=== PATIENT | male | born 1965 | race Caucasian/White ===

== ENCOUNTER 2019-08-15 07:47 | Emergency (ER) | payer BC ==
[2019-08-15] MEDS ORDERED: Sodium Chloride 0.9% 10 ML Syringe FLUSH PRN (07:56)
[2019-08-15 08:29] LABS: CHLORIDE,CL 106 mmol/L (98-107); SODIUM,NA 140 mmol/L (136-145)
--- NOTE | 2019-08-15 08:58 | EDM.PDOC ---
ED HPI GENERAL MEDICAL PROBLEM - General Chief Complaint: General Stated Complaint: left arm tingling and numbness Time Seen by Provider: 08/15/19 08:00 Source of Information: Reports: Patient History Limitations: Reports: No Limitations - History of Present Illness INITIAL COMMENTS - FREE TEXT/NARRATIVE: Pt with numbness and tingling in left arm Intermittent Starts in hand and extends up Has hx/o crush injury to hand many years ago Pain extends up arm Does not go to chest Father of heart disease Onset: Gradual Duration: Day(s):, Intermittent Location: Reports: Upper Extremity, Left Quality: Reports: Throbbing Severity: Moderate - Related Data Allergies Allergy/AdvReac Type Severity Reaction Status Date / Time No Known Allergies Allergy Verified 08/15/19 07:48 Home Meds: Home Meds . [No Known Home Meds] 08/15/19 [History] Past Medical History HEENT History: Reports: Impaired Vision Gastrointestinal History: Reports: Colon Polyp, Diverticulosis Musculoskeletal History: Reports: Arthritis, Fracture Other Musculoskeletal History: broken right leg, broken left hand Psychiatric History: Reports: Anxiety, Depression Hematologic History: Reports: Blood Transfusion(s) - Past Surgical History HEENT Surgical History: Reports: Oral Surgery GI Surgical History: Reports: Colonoscopy Social & Family History - Tobacco Use Smoking Status *Q: Current Every Day Smoker Years of Tobacco use: 25 Packs/Tins Daily: 1 - Caffeine Use Caffeine Use: Reports: Soda Other Caffeine Use: occasionally - Alcohol Use Days Per Week of Alcohol Use: 1 Number of Drinks Per Day: 1 Total Drinks Per Week: 1 - Recreational Drug Use Recreational Drug Use: No ED ROS GENERAL - Review of Systems Review Of Systems: See Below Constitutional: Reports: No Symptoms Respiratory: Reports: No Symptoms Cardiovascular: Reports: No Symptoms GI/Abdominal: Reports: No Symptoms Skin: Reports: No Symptoms Neurological: Reports: Numbness, Paresthesia, Tingling ED EXAM, GENERAL - Physical Exam Exam: See Below Exam Limited By: No Limitations General Appearance: Alert, WD/WN, No Apparent Distress Neck: Supple Respiratory/Chest: Lungs Clear Cardiovascular: Regular Rate, Rhythm GI/Abdominal: Non-Tender Extremities: Other (Old injury to left hand No neuro deficeits) Course - Vital Signs Last Recorded V/S: Last Vital Signs Temp 99 F 08/15/19 08:21 Pulse 75 03/26/20 08:45 Resp 16 08/15/19 08:45 BP 167/106 H 08/15/19 08:45 Pulse Ox 92 L 08/15/19 08:45 - Orders/Labs/Meds Orders: Active Orders 24 hr Category Date Time Status EKG Documentation Completion [RC] ASDIRECTED Care 08/15/19 07:56 Active Chest 2V [CR] Stat Exams 08/15/19 07:56 Taken Sodium Chloride 0.9% [Saline Flush] Med 08/15/19 07:56 Active 10 ml FLUSH ASDIRECTED PRN Saline Lock Insert [OM.PC] Routine Oth 08/15/19 07:56 Ordered EKG 12 Lead [EK] Routine Ther 08/15/19 07:56 Ordered Medication Orders Sodium Chloride (Saline Flush) 10 ml FLUSH ASDIRECTED PRN PRN Reason: Keep Vein Open Labs: Laboratory Tests 08/15/19 08/15/19 Range/Units 08:00 08:00 WBC 16.8 H (4.0-10.2) K/uL RBC 5.55 H (4.33-5.41) M/uL Hgb 17.1 H (13.1-16.8) g/dL Hct 50.3 H (39.0-49.0) % MCV 90.6 (84.0-98.0) fL MCH 30.8 (28.2-33.3) pg MCHC 34.0 (31.7-36.0) g/dL RDW 13.5 (11.2-14.1) % Plt Count 184 (150-350) K/uL Neut % (Auto) 63.5 (45.0-80.0) % Lymph % (Auto) 25.3 (10.0-50.0) % [place] % (Auto) 7.9 (2.0-14.0) % Eos % (Auto) 3.0 (0.0-5.0) % Baso % (Auto) 0.3 (0.0-2.0) % Neut # (Auto) 10.68 H (1.40-7.00) K/uL Lymph # (Auto) 4.25 H (0.50-3.50) K/uL [place] # (Auto) 1.32 H (0.00-1.00) K/uL Eos # (Auto) 0.50 (0.00-0.50) K/uL Baso # (Auto) 0.05 (0.00-0.20) K/uL Sodium 140 (136-145) mmol/L Potassium 4.0 (3.5-5.1) mmol/L Chloride 106 (98-107) mmol/L Carbon Dioxide 24.3 (21.0-32.0) mmol/L BUN 16 (7-18) mg/dL Creatinine 0.73 (0.51-1.17) mg/dL Est Cr Clr Drug Dosing 110.67 mL/min Estimated GFR (MDRD) > 60 mL/min Glucose 102 (74-106) mg/dL Calcium 8.9 (8.5-10.1) mg/dL Total Bilirubin 0.6 (0.2-1.0) mg/dL AST 23 (15-37) U/L ALT 56 (12-78) U/L Alkaline Phosphatase 87 (46-116) IU/L Troponin I 0.004 (0.000-0.056) ng/mL Total Protein 7.3 (6.4-8.2) g/dL Albumin 4.0 (3.4-5.0) g/dL Meds: Medications Generic Name Dose Route Start Last Admin Trade Name Freq PRN Reason Stop Dose Admin Sodium Chloride 10 ml 08/15/19 07:56 Saline Flush FLUSH ASDIRECTED PRN Keep Vein Open - Re-Assessments/Exams Free Text/Narrative Re-Assessment/Exam: 08/15/19 08:56 See lab EKG NSR CXR clear Departure - Departure Time of Disposition: 09:00 Disposition: Home, Self-Care 01 Clinical Impression: Arm paresthesia, left - Discharge Information *PRESCRIPTION DRUG MONITORING PROGRAM REVIEWED*: Not Applicable *COPY OF PRESCRIPTION DRUG MONITORING REPORT IN PATIENT KIMBERLY: Not Applicable Additional Instructions: Follow up in clinic Rx Diclofenac Sepsis Event Note - Evaluation Sepsis Screening Result: No Definite Risk - Focused Exam Vital Signs: Vital Signs Temp Pulse Resp BP Pulse Ox 08/15/19 08:45 75 16 167/106 H 92 L 08/15/19 08:21 99 F 74 15 147/101 H 95 08/15/19 08:07 98 F 72 16 129/72 96 08/15/19 07:47 83 14 165/102 H 95 Date Exam was Performed: 08/15/19 Time Exam was Performed: 08:53 - My Orders Last 24 Hours: My Active Orders 08/15/19 07:56 EKG Documentation Completion [RC] ASDIRECTED Chest 2V [CR] Stat Sodium Chloride 0.9% [Saline Flush] 10 ml FLUSH ASDIRECTED PRN Saline Lock Insert [OM.PC] Routine EKG 12 Lead [EK] Routine - Assessment/Plan Last 24 Hours: My Active Orders 08/15/19 07:56 EKG Documentation Completion [RC] ASDIRECTED Chest 2V [CR] Stat Sodium Chloride 0.9% [Saline Flush] 10 ml FLUSH ASDIRECTED PRN Saline Lock Insert [OM.PC] Routine EKG 12 Lead [EK] Routine
== END 2019-08-15 08:50 | disposition home or self-care (01) ==
LOC: LL.ED 07:47
DX: R20.2 Paresthesia of skin (principal); F17.210 Nicotine dependence, cigarettes, uncomplicated
CPT/HCPCS: 36415; 71046; 80053; 84484; 85025; 93005; 99284-25

== ENCOUNTER 2021-07-28 11:00 | Emergency (ER) | payer OTHER, BC ==
[2021-07-28 12:06] LABS: CHLORIDE,CL 104 mmol/L (98-107); SODIUM,NA 139 mmol/L (136-145)
[2021-07-28] MEDS ORDERED: Lidocaine 1% 5 ML VIAL INJECT ONE (12:26)
[2021-07-28] MEDS ORDERED: ceFAZolin 1 GM in Sodium Chloride 0.9% 100 ML IV ONE (12:32)
[2021-07-28] MEDS ORDERED: Bacitracin/Neomycin/Polymyxin B Oint 0.9 GM U/D Packet ONE (14:03)
[2021-07-28] MEDS ORDERED: Bacitracin/Neomycin/Polymyxin B Oint 0.9 GM U/D Packet TOP ONE (18:44)
== END 2021-07-28 14:41 | disposition home or self-care (01) ==
LOC: LL.ED 11:00
DX: S67.197A Crushing injury of left little finger, initial encounter (principal); S61.217A Laceration without foreign body of left little finger without damage to nail, initial encounter; Z72.0 Tobacco use; W20.8XXA Other cause of strike by thrown, projected or falling object, initial encounter
CPT/HCPCS: 12001; 36415; 73140-F4; 80053; 85025; 86140; 96365; 99283-25; J0690